=== PATIENT | male | born 2000 | race African-American/Black ===

== ENCOUNTER 2023-01-01 22:37 | Emergency (ER) | payer MEDICAID ==
[~2023-01-01] VITALS: Ht 193 cm; Wt 136.1 kg
[2023-01-01 23:21] VITALS: BP 140/95
== END 2023-01-02 01:02 | disposition left against medical advice (07) ==
LOC: ER 22:37
DX: Z53.21 Procedure and treatment not carried out due to patient leaving prior to being seen by health care provider (principal)
CPT/HCPCS: 71046